=== PATIENT | male | born 1960 | race Hispanic/Latino ===

== ENCOUNTER → 2020-09-29 | Outpatient (CLI) | payer OTHER ==
[~2020-09-29] MED LIST: ASPIRIN PO; COVID-19 VACC, MRNA(MODERNA)/PF 100 MCG/0.5 ML VIAL IM ONE; CRESTOR PO; HUMALOG100 UNITS/ SC; LANTUS 3ML100 UNITS/ SC; METFORMIN HCL850 MG PO; TYLENOL WITH C1 EACH PO; VALSARTAN PO
== END | disposition home or self-care (01) ==
LOC: VACCPMC 08:55
DX: Z23 Encounter for immunization (principal); Z20.822 Contact with and (suspected) exposure to COVID-19
CPT/HCPCS: 91301

== ENCOUNTER → 2020-10-27 | Outpatient (CLI) | payer OTHER | END | disposition home or self-care (01) | LOC: VACCPMC 12:00 | DX: Z23 Encounter for immunization (principal); Z20.822 Contact with and (suspected) exposure to COVID-19 | CPT/HCPCS: 91301 ==